=== PATIENT | female | born 2000 | race Caucasian/White ===

== ENCOUNTER 2020-04-28 22:48 | Emergency (ER) | payer OTHER ==
[~2020-04-28] VITALS: Ht 170.2 cm; Wt 66.5 kg
[2020-04-29 00:41] LABS: BASOPHILS % (AUTO) 1 % (0-1); EOSINOPHILS % (AUTO) 9 % (1-7); LYMPHOCYTES % (AUTO) 33 % (22-44); MEAN CORPUSCULAR HEMOGLOBIN 27.6 pg (27.0-34.8); MEAN CORPUSCULAR HGB CONC 33.5 g/dL (32.4-35.8); MEAN PLATELET VOLUME 9.3 fL (7.4-10.4); MONOCYTES % (AUTO) 8 % (2-9); NEUTROPHILS % (AUTO) 49 % (42-75); PLATELET COUNT 352 x10^3/uL (130-400); RED BLOOD COUNT 4.89 x10^6/uL (3.82-5.3); RED CELL DISTRIBUTION WIDTH 14.8 % (9.6-15.2)
[2020-04-29 00:43] LABS: HCG UR SG 1.035 (1.003-1.030)
[2020-04-29 00:45] LABS: MD NO
[2020-04-29 00:52] LABS: ANION GAP 7 mmol/L (5-15); CALCIUM 10.1 mg/dL (8.5-10.1); CHLORIDE 107 mmol/L (98-107); CREATININE 0.86 mg/dL (0.55-1.02)
[2020-04-29 00:55] LABS: MICROSCOPIC INDICATED
--- NOTE | 2020-04-29 01:15 | NUR ---
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 TO ROOM FROM LOBBY AT THIS TIME.
--- NOTE | 2020-04-29 01:20 | NUR ---
First contact with patient: patient presents to ER c/o LLQ abd pain x7 hours. Pain radiates to lower back. C/o painful urination with increased frequency. Patient is in NAD. REspirations even and unlabored.
[2020-04-29] MEDS ORDERED: SODIUM CHLORIDE 0.9% 1,000ML IVBOLUS ONE (01:30)
[2020-04-29] MEDS ORDERED: CEFTRIAXONE PMX 1GM/50ML 50 ML IV ONE (01:30)
[2020-04-29] MEDS ORDERED: KETOROLAC 30 MG/1 ML IVPush ONE (01:30)
[2020-04-29] MEDS ORDERED: MORPHINE SULFATE 4 MG/ML, 1ML IVPush PRN (01:30)
[2020-04-29] MEDS ORDERED: SODIUM CHLORIDE FLUSH 10ML SYR IVF ONE (01:30)
[2020-04-29] MEDS ORDERED: ONDANSETRON 2MG/ML, 2ML IVPush ONE (01:30)
[2020-04-29] MEDS ORDERED: ONDANSETRON 2MG/ML, 2ML ONE (01:36)
[2020-04-29] MEDS ORDERED: CEFTRIAXONE PMX 1GM/50ML 50 ML ONE (01:36)
[2020-04-29] MEDS ORDERED: KETOROLAC 30 MG/1 ML ONE (01:36)
[2020-04-29] MEDS ORDERED: MORPHINE SULFATE 4 MG/ML, 1ML ONE (01:36)
[2020-04-29 05:35] VITALS: BP 95/56
== END 2020-04-29 05:37 | disposition home or self-care (01) ==
LOC: ED 04-29 04:26
DX: N30.00 Acute cystitis without hematuria (principal)
CPT/HCPCS: 36415; 74176; 76830; 80048; 81001; 81025; 85025; 87086; 96374; 96375; 99285; J0696; J1885; J2270; J2405; J7030